=== PATIENT | male | born 2000 | race Hispanic/Latino ===

== ENCOUNTER 2023-05-17 11:07 | Emergency (ER) | payer BC ==
[~2023-05-17] VITALS: Ht 170.2 cm; Wt 68.0 kg
[2023-05-17 12:10] LABS: RAPID GROUP A STREP negative (NEGATIVE)
[2023-05-17 12:11] LABS: SARS-CoV-2, RNA, NAAT NEGATIVE SARS CoV-2 (NEGATIVE)
[2023-05-17 12:20] LABS: INFLUENZA TYPE A Negative For Type A (NEGATIVE)
[2023-05-17 12:23] LABS: INFLUENZA TYPE B Positive For Type B (NEGATIVE)
[2023-05-17] MEDS ORDERED: OSEL75 PO (12:55)
[2023-05-17] MEDS ORDERED: BENZ-39 PO (12:55)
[2023-05-17 13:40] VITALS: BP 115/52; PULSE 74; RESP 14; O2SAT 98
== END 2023-05-17 13:47 | disposition home or self-care (01) ==
LOC: EDH 11:07
DX: J10.1 Influenza due to other identified influenza virus with other respiratory manifestations (principal); Z20.822 Contact with and (suspected) exposure to COVID-19
CPT/HCPCS: 99283; 71045; 87635; 87880; 87804 ×2; C9803